=== PATIENT | male | born 1990 | race American Indian/Alaskan Native ===

== ENCOUNTER 2019-10-20 03:14 | Emergency (ER) | payer SELFPAY ==
--- NOTE | 2019-10-20 03:33 | Emergency Department Report ---
Chief Complaint: Pain General Stated Complaint: FEVER,HEADACHES Time Seen by Provider: 10/20/19 03:28 - HPI History of Present Illness: EMS documentation not available at time of chart dictation The patient is a 28-year-old gentleman, brought to the hospital by emergency medical services, with a complaint of generalized weakness and body aches for 1- 1/2 days. Apparently he was seen by a nurse practitioner within the past 24 hours, given prescription for acetaminophen, instructed to stay inside. The patient states he has been going out, not self isolating, not wearing a mask, not self quarantining. He complains of total body pain. On my examination, he has a low-grade temperature, but he does not appear to be in any acute distress, he is speaking on a cellular phone, moving 4 extremities, without obvious meningeal signs. Head is normocephalic atraumatic. There is no facial droop. Ears appear to be within normal limits. There are no meningeal signs/no nuchal rigidity. He has no stridor or dysphonia, and he does not appear to be in any significant respiratory distress. He is moving 4 extremities spontaneously. The patient does not have an emergency medical condition at this time, he likely has a viral syndrome. The patient is counseled to self isolate, self quarantine, wash hands with soap and water often, take Tylenol as needed, and avoid touching hands to face, eyes, or mouth. He may return to this emergency room with worsening clinical conditions. At the moment, he is very suitable for trial of outpatient supportive care and management. Vital Signs 10/20/19 03:16 Temperature 100.5 F H Pulse Rate 85 Respiratory 16 Rate Blood Pressure 128/74 O2 Sat by Pulse 98 Oximetry - Exam Vital Signs: Vital Signs 10/20/19 03:16 Temperature 100.5 F H Pulse Rate 85 Respiratory 16 Rate Blood Pressure 128/74 O2 Sat by Pulse 98 Oximetry MSE screening note: Focused history and physical exam performed. Due to findings the following was ordered: ED Disposition for MSE Condition: Stable
[2019-10-20] MEDS ORDERED: ACETAMINOPHEN 325 MG TAB PO ONE (03:35)
[2019-10-20 05:35] VITALS: BP 122/62
== END 2019-10-20 03:35 | disposition home or self-care (01) ==
LOC: ED 03:14
DX: R53.1 Weakness (principal); R53.81 Other malaise; R50.9 Fever, unspecified; R51 Headache
CPT/HCPCS: 99282